=== PATIENT | male | born 1985 | race Caucasian/White ===

== ENCOUNTER 2020-01-28 15:56 | Emergency (ER) | payer BC ==
[~2020-01-28] VITALS: Ht 182.9 cm; Wt 88.0 kg
--- NOTE | 2020-01-28 16:43 | NUR ---
PT PHONE NUMBERS: KATHIE: [phone] [place]: [phone]
[2020-01-28 16:50] LABS: BASOPHILS # (AUTO) 0.1 X10'3 (0-0.2); BASOPHILS % (AUTO) 0.6 % (0-1); EOSINOPHILS % (AUTO) 0 % (0-6); HEMATOCRIT 46.7 % (42.0-52.0); HEMOGLOBIN 15.9 g/dl (14.0-17.9); LYMPHOCYTES # (AUTO) 0.7 X10'3 (1.1-4.8); MEAN CORPUSCULAR HGB CONC 34.1 g/dL (33.0-36.5); MEAN PLATELET VOLUME 8.3 FL (7.4-10.4); MONOCYTES # (AUTO) 0.4 X10'3 (0-0.9); MONOCYTES % (AUTO) 2.8 % (2-12); NEUTROPHILS # (AUTO) 12.8 X10'3 (1.8-7.7); NEUTROPHILS % (AUTO) 91.6 % (42-75); PLATELET COUNT 345 X10'3 (140-440); RED BLOOD COUNT 5.13 X10'6 (4.70-6.10); RED CELL DISTRIBUTION WIDTH 13.7 % (11.5-14.5)
[2020-01-28 16:59] LABS: CLARITY,URINE CLEAR (Clear); COLOR,URINE YELLOW (Yellow); GLUCOSE, URINE NEGATIVE (Neg); KETONES,URINE TRACE mg/dl (Neg); LEUKOCYTE ESTERASE ,URINE NEGATIVE (Neg); NITRITES, URINE NEGATIVE (Neg); OCCULT BLOOD,URINE NEGATIVE (Neg); PH,URINE 5.5 (4.8-8.0); PROTEIN,URINE TRACE mg/dl (Neg); UROBILINOGEN,URINE 0.2 E.U/dL (0.2-1.0)
[2020-01-28 17:00] LABS: UA COLLECTION TYPE CLN CATCH MIDSTREAM
[2020-01-28 17:04] LABS: BACTERIA,URINE FEW /HPF (Neg); MUCUS STRANDS MODERATE /LPF (Neg); RBC,URINE NONE SEEN /HPF (0-2); SQUAMOUS EPITHELIAL CELL,UR FEW /LPF (FEW); WBC,URINE 0-4 /HPF (0-4)
[2020-01-28 17:07] LABS: ALANINE AMINOTRANSFERASE 33 U/L (12-78); ALBUMIN 4.6 G/DL (3.4-5.0); ALBUMIN/GLOBULIN RATIO 1.6 (1.1-1.5); ALKALINE PHOSPHATASE 68 IU/L (46-116); ANION GAP 14 (8-16); ASPARTATE AMINO TRANSFERASE 28 U/L (10-37); BILIRUBIN,TOTAL 0.5 MG/DL (0.1-1.0); BLOOD UREA NITROGEN 17 MG/DL (7-18); BUN/CREATININE RATIO 10.6 (5.4-32.0); CALCIUM 9.7 MG/DL (8.5-10.1); CHLORIDE 105 MMOL/L (99-107); GLUCOSE 137 MG/DL (70-104); POTASSIUM 4.2 MMOL/L (3.5-5.1); SODIUM 141 MMOL/L (135-145); TOTAL CARBON DIOXIDE 22.5 MMOL/L (24-32); TOTAL PROTEIN 7.4 G/DL (6.4-8.2); eGFR 49 ML/MIN
--- NOTE | 2020-01-28 17:08 | NUR ---
PT IS RESTING QUIETLY ON [place], AWARE OF PLAN OF CARE, USING PHONE
[2020-01-28 17:17] LABS: ETHANOL < 0.010 GM/DL (0.0-0.010)
[2020-01-28 17:23] LABS: URINE AMPHETAMINE SCREEN POSITIVE (Neg); URINE BARBITUATE SCREEN NEGATIVE (Neg); URINE BENZODIAZEPINES SCREEN NEGATIVE (Neg); URINE CANNABINOID SCREEN POSITIVE (Neg); URINE COCAINE SCREEN NEGATIVE (Neg); URINE METHADONE SCREEN NEGATIVE (Neg); URINE OPIATE SCREEN NEGATIVE (Neg); URINE PHENCYCLIDINE SCREEN NEGATIVE (Neg)
[2020-01-28] MEDS ORDERED: AMPH20TA3 PO ×2 (17:43→19:12)
--- NOTE | 2020-01-28 18:32 | NUR ---
Assumed care of patient, pt. laying in bed at this time, rr even and unlabored.
--- NOTE | 2020-01-28 20:30 | NUR ---
1:1 completed at bedside, pt. denies any S/I, H/I, A/V/OCHOA, or delusions. Pt. states, "I had a rough morning, but I'm fine now." He reports that he has a good relationship/support system with his girlfriend. Pt. would really like to go home.
--- NOTE | 2020-01-28 20:30 | NUR ---
Packet faxed to [facility], registration did not complete prior to this. Pt. spoke on the phone to his girlfriend who has traveled from [place] to pick him up, however informed pt. that he must still be evaluated by [facility]. He is reporting understanding and is calm and cooperartive.
--- NOTE | 2020-01-28 22:10 | NUR ---
Pt. discharged home with girlfriend at this time. Reviewed discharge instructions, provided with resources, and pt. is able to contract for safety. Pt. escorted out with security and tech.
[2020-01-28 22:57] VITALS: BP 139/91
[2020-01-29] MEDS ORDERED: dextroamphetamine/amphetamine 10mg tablet PO SCH (07:30)
== END 2020-01-28 23:05 ==
LOC: ER 15:57 → EEVIPCON 15:57 → ER 23:05
DX: F22 Delusional disorders (principal); F31.9 Bipolar disorder, unspecified; F12.10 Cannabis abuse, uncomplicated; F15.10 Other stimulant abuse, uncomplicated; N28.9 Disorder of kidney and ureter, unspecified; Z91.14 Patient's other noncompliance with medication regimen; Z60.2 Problems related to living alone; Z79.899 Other long term (current) drug therapy
CPT/HCPCS: 36415; 80053; 80305; 80320; 81001; 84443; 85025; 99285